=== PATIENT | female | born 1985 | race Two or more races ===

== ENCOUNTER 2022-08-03 10:50 | Emergency (ER) | payer MEDICAID ==
[~2022-08-03] VITALS: Ht 162.6 cm; Wt 63.5 kg
--- NOTE | 2022-08-03 11:10 | NUR ---
BIBSELF C/O LEFT KNEE SWELLING SINCE LAST NIGHT . NO TRAUMA, NO WOUND NOTED .
[2022-08-03] MEDS ORDERED: KETOROLAC TROMETHAMINE INJ 60 MG/2 ML VIAL IM ONE (11:30)
--- NOTE | 2022-08-03 12:25 | NUR ---
X RAY AT BED SIDE ON LT KNEE
--- NOTE | 2022-08-03 13:10 | NUR ---
PAIN REDUCED PT FEEING BEATED PAIN 0/10
[2022-08-03] MEDS ORDERED: NAPR-1164 PO (13:27)
[2022-08-03 13:42] VITALS: BP 100/50
--- NOTE | 2022-08-03 13:42 | NUR ---
Patient discharged to home in stable condition. Written and verbal after care instructions given. Patient verbalizes understanding of instruction.
== END 2022-08-03 13:43 | disposition home or self-care (01) ==
LOC: ER 10:59
DX: M25.562 Pain in left knee (principal)
CPT/HCPCS: 99283; 96372; 73564; J1885